=== PATIENT | female | born 1945 | race African-American/Black ===

== ENCOUNTER 2018-09-22 04:47 | Inpatient (IN) | payer SELFPAY ==
[~2018-09-22] VITALS: Ht 157.5 cm; Wt 53.1 kg
[2018-09-22] MEDS ORDERED: ONDANSETRON HCL 4MG/2ML INJ IV STA (05:28)
[2018-09-22] MEDS ORDERED: MORPHINE SULFATE 4 MG/ML CPJ (NOT FOR IM USE) IV STA (05:28)
[2018-09-22] MEDS ORDERED: SODIUM CHLORIDE 0.9% 1,000 ML IV ONE (05:28)
[2018-09-22 05:51] LABS: BASOPHILS % 0.7 % (0.0-2.0); EOSINOPHILS % 1.6 % (0.0-5.0); HEMATOCRIT. 33.8 % (36.0-48.0); HEMOGLOBIN. 11.4 g/dL (12.0-16.0); LYMPHOCYTES % 17.7 % (20.0-50.0); MEAN CORPUSCULAR HEMOGLOBIN 30.2 pg (28.0-32.0); MEAN CORPUSCULAR VOLUME 89.6 fL (81.0-99.0); MONOCYTES % 14.5 % (2.0-8.0); NEUTROPHILS % 65.5 % (40.0-76.0); PLATELET 109 x1000/uL (130-400); RED BLOOD CELL COUNT 3.77 mill/uL (4.2-5.4); RED CELL DISTRIBUTION WIDTH 24.8 % (11.6-14.6)
[2018-09-22 05:57] LABS: CHLORIDE 94 mEq/L (98-107)
[2018-09-22 06:09] LABS: BG BASE EXCESS -3.7 mmol/L (-2.0-2.0); BG CARBOXYHEMOGLOBIN 0.2 % (0.5-1.5); BG DEOXYHEMOGLOBIN 1.8 % (0.0-5.0); BG FRACTION INSPIRED OXYGEN 21; BG HCO3 ACT 18.2 mmol/L (22.0-26.0); BG METHEMOGLOBIN 0.1 % (0.0-1.5); BG OXYGEN SATURATION 98.2 % (92.0-98.5); BG OXYHEMOGLOBIN 97.9 % (94.0-97.0); BG PCO2 24.1 mmHg (35.0-45.0); BG PH 7.496 (7.350-7.450); BG PO2 114.8 mmHg (75.0-100.0); BG SAMPLE SITE LEFT RADIAL; BG TOTAL HEMOGLOBIN 10.6 g/dL (12.0-18.0); BG VENT MODE ROOM AIR
[2018-09-22] MEDS ORDERED: VANCOMYCIN 1 G PREMIX 200 ML IV ONE (06:30)
[2018-09-22] MEDS ORDERED: MEROPENEM 1,000 MG in SODIUM CHLORIDE 0.9% 100 ML IV ONE (06:30)
[2018-09-22 06:43] LABS: PLATELET ESTIMATE SLIGHTLY DECREASED
[2018-09-22 09:05] VITALS: BP 98/67
[2018-09-22 10:16] VITALS: BP 98/67
[2018-09-22] MEDS ORDERED: NA PHOS,M-B/NA PHOS,DI-BA ENEMA 118ML PR PRN (11:00)
[2018-09-22] MEDS ORDERED: TRAMADOL 50MG TABLET PO PRN (11:00)
[2018-09-22] MEDS ORDERED: NITROGLYCERIN 0.4MG TABLET SL SL PRN (11:00)
[2018-09-22] MEDS ORDERED: ONDANSETRON HCL 4MG/2ML INJ IV PRN (11:00)
[2018-09-22] MEDS ORDERED: DOCUSATE SODIUM 100MG CAPSULE PO PRN (11:00)
[2018-09-22] MEDS ORDERED: CEFTRIAXONE 1 G PREMIX 50 ML IV SCH (11:00)
[2018-09-22] MEDS ORDERED: ACETAMINOPHEN 325MG TABLET PO PRN (11:00)
[2018-09-22] MEDS ORDERED: CLONIDINE 0.1MG TABLET PO PRN (11:00)
[2018-09-22] MEDS ORDERED: MAGNESIUM/ALUMINUM HYDROXIDE/SIMETHICONE 30ML UDC PO PRN (11:00)
[2018-09-22] MEDS ORDERED: IPRATROPIUM/ALBUTEROL 0.5-3(2.5)MG/3ML NEB INH PRN (11:00)
[2018-09-22] MEDS ORDERED: GUAIFENESIN 200MG/10ML SUGAR FREE UDC PO PRN (11:00)
[2018-09-22] MEDS ORDERED: MORPHINE SULFATE 4 MG/ML CPJ (NOT FOR IM USE) IV PRN (11:00)
[2018-09-22] MEDS ORDERED: POTA99TA4 MT (11:06)
[2018-09-22 12:00] VITALS: BP 104/60
[2018-09-22 12:24] LABS: T4 FREE 1.67 ng/dL (0.76-1.46)
[2018-09-22 12:44] LABS: VITAMIN B12 SERUM 1372 pg/mL (211-911)
[2018-09-22 12:47] LABS: FOLIC ACID (FOLATE) SERUM > 20.00 ng/mL (>5.38)
[2018-09-22] MEDS: ENOXAPARIN 40MG/0.4ML SYR SUBCUT SCH (13:01)
[2018-09-22] MEDS ORDERED: LEVOFLOXACIN 500MG PREMIX 100 ML IV NR (14:00)
[2018-09-22] MEDS ORDERED: GENTAMICIN 100MG PREMIX 50 ML IV NR (14:00)
[2018-09-22 14:20] LABS: CLARITY URINE CLOUDY (CLEAR); COLOR URINE DARK YELLOW (YELLOW); KETONES URINE NEGATIVE (NEGATIVE); LEUKOCYTE ESTERASE URINE 2+ (NEGATIVE); NITRITE URINE NEGATIVE (NEGATIVE); OCCULT BLOOD URINE NEGATIVE (NEGATIVE); PROTEIN URINE 1+ (NEGATIVE); SPECIFIC GRAVITY URINE 1.023 (1.005-1.030); UROBILINOGEN URINE 0.2 E.U./dL (0.2-1.0)
[2018-09-22] MEDS: SODIUM CHLORIDE 0.9% 1,000 ML IV SCH (14:43)
[2018-09-22 15:40] LABS: CREATINE KINASE MB FRACTION 4.5 ng/mL (0.5-3.6)
[2018-09-22 16:00] VITALS: BP 101/62
[2018-09-22 20:00] VITALS: BP 104/62
[2018-09-22] MEDS: ASCORBIC ACID 500 MG TABLET PO SCH (20:10)
[2018-09-22] MEDS ORDERED: ZOLPIDEM TARTRATE 5MG TABLET PO PRN (21:00)
[2018-09-22 23:51] LABS: CREATINE KINASE MB FRACTION 2.8 ng/mL (0.5-3.6)
[2018-09-23] VITALS: BP 109/64
[2018-09-23] MEDS ORDERED: GENTAMICIN 80MG PREMIX 100 ML IV SCH (02:00)
[2018-09-23] MEDS: SODIUM CHLORIDE 0.9% 1,000 ML IV SCH (03:08)
[2018-09-23 04:00] VITALS: BP 109/64
[2018-09-23 07:19] LABS: HEMATOCRIT. 25.5 % (36.0-48.0); HEMOGLOBIN. 8.7 g/dL (12.0-16.0); MEAN CORPUSCULAR HEMOGLOBIN 30.6 pg (28.0-32.0); MEAN CORPUSCULAR VOLUME 90.1 fL (81.0-99.0); MEAN PLATELET VOLUME 7.8 fl (7.4-10.4); PLATELET 81 x1000/uL (130-400); RED BLOOD CELL COUNT 2.83 mill/uL (4.2-5.4); RED CELL DISTRIBUTION WIDTH 24.6 % (11.6-14.6)
[2018-09-23 07:41] LABS: CHLORIDE 104 mEq/L (98-107)
[2018-09-23 07:43] VITALS: BP 109/70
[2018-09-23] MEDS: ASCORBIC ACID 500 MG TABLET PO SCH (08:34)
[2018-09-23] MEDS ORDERED: GENTAMICIN 100MG PREMIX 50 ML IV SCH (09:00)
[2018-09-23] MEDS ORDERED: ZINC SULFATE 220 MG ( 50 ) CAPSULE PO SCH (09:00)
[2018-09-23] MEDS: ENOXAPARIN 40MG/0.4ML SYR SUBCUT SCH (09:00)
[2018-09-23 10:40] LABS: PLATELET ESTIMATE DECREASED
[2018-09-23 11:13] VITALS: BP 109/70
[2018-09-23 11:55] VITALS: BP 120/79
[2018-09-23] MEDS ORDERED: LEVOFLOXACIN 250MG PREMIX 50 ML IV SCH (14:00)
== END 2018-09-23 12:20 | disposition home or self-care (01) | DRG 720 ==
LOC: ER 04:47 → 8WST 05:51 → EDBEDREQ 05:52 → EDBEDREQTM 05:52 → ENRESERV 07:45
PROVIDERS: ADMIT Internal Medicine; ATTEND Internal Medicine
DX: A41.9 Sepsis, unspecified organism (principal); D61.810 Antineoplastic chemotherapy induced pancytopenia; I95.9 Hypotension, unspecified; E87.0 Hyperosmolality and hypernatremia; R64 Cachexia; C18.9 Malignant neoplasm of colon, unspecified; E87.1 Hypo-osmolality and hyponatremia; N39.0 Urinary tract infection, site not specified; E87.6 Hypokalemia; I10 Essential (primary) hypertension; T45.1X5A Adverse effect of antineoplastic and immunosuppressive drugs, initial encounter; Y92.89 Other specified places as the place of occurrence of the external cause; Z93.3 Colostomy status; Z92.21 Personal history of antineoplastic chemotherapy; Z68.21 Body mass index [BMI] 21.0-21.9, adult
CPT/HCPCS: 36415; 36600; 71045; 80061; 82375; 82550; 82553; 82607; 82746; 82805; 83036; 83540; 83550; 83605; 84439; 84443; 84484; 93005; 93306; 93970; 96365; 96375; 99291; J1580; J1650; J1956; J2185; J2405; J3370; J7030; J7040; J7050